=== PATIENT | female | born 1985 | race Caucasian/White ===

== ENCOUNTER 2019-09-10 06:53 | Emergency (ER) | payer BC ==
[~2019-09-10] VITALS: Ht 154.9 cm; Wt 62.0 kg
[2019-09-10] MEDS ORDERED: MICR1TAB7 PO (07:07)
[2019-09-10] MEDS ORDERED: ZYRTTAB8 PO (07:07)
[2019-09-10] MEDS ORDERED: ISOVUE-370 76% 100ML VIAL As Ordered ONE (07:43)
[2019-09-10 07:51] LABS: BASO # 0.1 10^3/uL (0.0-0.2); BASO % 1.3 % (0.0-1.0); EOS # 0.2 10^3/uL (0.0-0.5); EOS % 2.6 % (0.0-3.0); HEMOGLOBIN 12.7 g/dl (12.0-15.5); LYMPH # 4.2 10^3/uL (1.5-5.0); MEAN CORPUSCULAR HGB CONC 32.6 g/dl (32.0-36.5); MEAN CORPUSCULAR VOLUME 86.1 fl (80.0-96.0); MONO # 0.5 10^3/uL (0.0-0.8); MONO % 6.2 % (0.0-5.0); NEUTROPHILS # 3.5 10^3/uL (1.5-8.5); NEUTROPHILS % 40.7 % (36.0-66.0); PLATELET COUNT, AUTOMATED 443 10^3/uL (150-450); RED BLOOD COUNT 4.53 10^6/uL (4.00-5.40); WHITE BLOOD COUNT 8.6 10^3/uL (4.0-10.0)
[2019-09-10 08:19] LABS: ERYTHROCYTE SEDIMENTATION RATE 25 mm/hr (0-20)
[2019-09-10 08:20] LABS: MONO REFLEX EBV COMP NEGATIVE (NEGATIVE)
--- NOTE | 2019-09-10 08:29 | REPVR ---
PROCEDURE INFORMATION: Exam: CT Head Without Contrast Exam date and time: 09/10/2019 8:17 AM Age: 34 years old Clinical indication: Other: Decrased sensation right side TECHNIQUE: Imaging protocol: Computed tomography of the head without contrast. Radiation optimization: All CT scans at this facility use at least one of these dose optimization techniques: automated exposure control; mA and/or kV adjustment per patient size (includes targeted exams where dose is matched to clinical indication); or iterative reconstruction. COMPARISON: No relevant prior studies available. FINDINGS: Brain: Normal. No hemorrhage. Unremarkable white matter. No mass effect. Ventricles: Normal. No ventriculomegaly. Bones/joints: Unremarkable. No acute fracture. Sinuses: Visualized sinuses are unremarkable. No fluid levels. Mastoid air cells: Visualized mastoid air cells are well aerated. Soft tissues: Unremarkable. IMPRESSION: No CT evidence for acute intracranial abnormality. Electronically signed by: Jude Sawant On 09/10/2019 08:29:21 AM
[2019-09-10 08:30] LABS: C REACTIVE PROTEIN QUANTITATIV < 0.30 MG/DL (0.00-0.30); FREE T4 1.17 NG/DL (0.76-1.46); MAGNESIUM LEVEL 2.2 MG/DL (1.8-2.4)
--- NOTE | 2019-09-10 08:44 | REPVR ---
PROCEDURE INFORMATION: Exam: CT Neck With Contrast Exam date and time: 09/10/2019 8:17 AM Age: 34 years old Clinical indication: Throat pain and other: R anterior neck pain TECHNIQUE: Imaging protocol: Computed tomography images of the neck with intravenous contrast. Radiation optimization: All CT scans at this facility use at least one of these dose optimization techniques: automated exposure control; mA and/or kV adjustment per patient size (includes targeted exams where dose is matched to clinical indication); or iterative reconstruction. Contrast material: ISOVUE 370; Contrast volume: 75 ml; Contrast route: IV; COMPARISON: No relevant prior studies available. FINDINGS: Brain: The visualized brain parenchyma is unremarkable. Sinuses: The visualized paranasal sinuses are clear. There are no air fluid levels to suggest acute sinusitis. Nasopharynx: Unremarkable. Oropharynx: Examination reveals moderate submucosal soft tissue swelling in the oropharynx consistent with acute tonsillitis.There is moderate narrowing of the adjacent airway. There is no evidence of focal fluid collections to suggest abscess formation. Hypopharynx: Unremarkable. Larynx: Unremarkable. Normal epiglottis. Retropharyngeal space: Unremarkable. Submandibular/Parotid glands: Normal. Glands are normal in size. Thyroid: Normal. No enlarged or calcified nodules. Lymph nodes: There are multiple enlarged level I and level II lymph nodes in the neck bilaterally, most likely reactive in etiology. Trachea: Visualized trachea is unremarkable. Lungs: The visualized portions of the lung apices are normal. Vasculature: There is moderate medial and retropharyngeal ectasia of the right common carotid artery. Mastoid air cells: The visualized mastoid air cells are clear. Bones/joints: The visualized osseous structures are unremarkable. No acute fracture or dislocation is seen. IMPRESSION: 1. Examination reveals moderate submucosal soft tissue swelling in the oropharynx consistent with acute tonsillitis.There is moderate narrowing of the adjacent airway. There is no evidence of focal fluid collections to suggest abscess formation. 2. There are multiple enlarged level I and level II lymph nodes in the neck bilaterally, most likely reactive in etiology. Electronically signed by: Fadi Jaramillo On 09/10/2019 08:44:06 AM
[2019-09-10] MEDS ORDERED: dexameTHASONE 20MG/5ML VIAL (J1100 PER 1MG) IV ONE (09:00)
[2019-09-10 09:07] VITALS: BP 108/63
[2019-09-10] MEDS ORDERED: PRED20TA PO (09:10)
[2019-09-11] MEDS ORDERED: PRED20TA PO (12:13)
[2019-09-13 00:06] LABS: EBV AB TO NUCLEAR ANTIGEN >600.0 U/mL (0.0-17.9); EBV VIRAL CAPSID AG IgM 37.6 U/mL (0.0-35.9)
== END 2019-09-10 09:22 | disposition home or self-care (01) ==
LOC: M ED 06:53
DX: H92.01 Otalgia, right ear (principal); J02.9 Acute pharyngitis, unspecified; J06.9 Acute upper respiratory infection, unspecified; B34.9 Viral infection, unspecified; M54.2 Cervicalgia; R59.9 Enlarged lymph nodes, unspecified
CPT/HCPCS: 36415; 70450; 70491; 80047; 83735; 84439; 84443; 84702; 85025; 85652; 86140; 86308; 86664; 86665; 87040; 87880; 96374; 99284; J1100; Q9967

== ENCOUNTER 2019-09-11 06:54 | Observation (INO) | payer BC ==
[~2019-09-11] VITALS: Ht 154.9 cm; Wt 59.8 kg
[~2019-09-11 06:54] MED LIST: MICR1TAB7 PO; PRED20TA PO; ZYRTTAB8 PO
[2019-09-11 07:47] LABS: BASO % 0.2 % (0.0-1.0); HEMOGLOBIN 13.7 g/dl (12.0-15.5); LYMPH # 1.5 10^3/uL (1.5-5.0); MEAN CORPUSCULAR HEMOGLOBIN 27.4 pg (27.0-33.0); MEAN CORPUSCULAR HGB CONC 31.9 g/dl (32.0-36.5); MONO # 0.4 10^3/uL (0.0-0.8); MONO % 2.1 % (0.0-5.0); NEUTROPHILS # 14.6 10^3/uL (1.5-8.5); NEUTROPHILS % 88.2 % (36.0-66.0); PLATELET COUNT, AUTOMATED 522 10^3/uL (150-450); WHITE BLOOD COUNT 16.6 10^3/uL (4.0-10.0)
[2019-09-11 08:09] LABS: ERYTHROCYTE SEDIMENTATION RATE 14 mm/hr (0-20)
[2019-09-11 08:14] LABS: BLOOD UREA NITROGEN 13 MG/DL (7-18); C REACTIVE PROTEIN QUANTITATIV < 0.30 MG/DL (0.00-0.30); CALCIUM LEVEL 10.1 MG/DL (8.5-10.1); CARBON DIOXIDE LEVEL 26 MEQ/L (21-32); CHLORIDE LEVEL 104 MEQ/L (98-107); CREATININE FOR GFR 0.82 MG/DL (0.55-1.30); GLOMERULAR FILTRATION RATE > 60.0 (>60); GLUCOSE, FASTING 123 MG/DL (70-100); POTASSIUM SERUM 4.2 MEQ/L (3.5-5.1); SODIUM LEVEL 137 MEQ/L (136-145)
[2019-09-11 09:39] LABS: CPK CREATINE PHOSPHOKINASE 55 U/L (26-192); TOTAL PROTEIN 9.3 GM/DL (6.4-8.2)
[2019-09-11 10:21] LABS: VITAMIN B12 LEVEL 532 PG/ML (247-911)
--- NOTE | 2019-09-11 10:46 | REP ---
MRI brain without contrast: History: Diffuse pins and needles sensation. Rule out demyelinating disease. . Comparison study: Comparison CT study of the brain is from the previous day. Technique: Axial and sagittal imaging planes are utilized for T1 and T2-weighted scans. Sequences include spin-echo, fast spin echo, FLAIR, and diffusion weighted sequences. MRI findings: No bony calvarial lesion is seen. Craniocervical junction and upper cervical cord are normal in appearance. There is no MR evidence of significant paranasal sinus disease. No intraorbital abnormality is seen. The lateral, third, and fourth ventricles are normal in size and position. Mcmillan-white differentiation pattern is intact above and below the tentorium. There is no evidence of intracranial hemorrhage. No mass, infarction, extra-axial fluid collection or midline shift is seen. No abnormal white matter lesion is seen. Impression: Negative noncontrast brain MRI study. Electronically Signed by Min Jain MD 09/11/2019 10:38 A
--- NOTE | 2019-09-11 11:19 | REP ---
MRI CERVICAL SPINE WITHOUT CONTRAST: HISTORY: Diffuse pins and needles sensation. Rule out a MS. Comparison soft tissue neck CT study September 10, 2019. TECHNIQUE: Sagittal and axial T1- and T2-weighted scans are acquired in the usual fashion with and without fat saturation. Sequences include spin echo, turbo spin-echo, and STIR imaging sequences. MRI FINDINGS: There is straightening of the normal cervical lordosis. There are mild degenerative disc changes. There is a Schmorl's node at the superior endplate of the C7 vertebral body. The C6-7 disc is somewhat narrowed and shows decreased signal intensity on T2-weighted scans. There is central disc bulging at C6-7 effacing the ventral subarachnoid space but no cord compression is seen. There is similar degenerative disc findings at C5-6 with mild central disc bulging. No foraminal narrowing or central canal stenosis is seen. Other disc spaces are maintained in height and signal intensity. No other evidence of abnormal disc protrusion. The cervical cord is normal in coarse, caliber, and signal intensity on T1- and T2-weighted scans. No abnormal cord signal intensity is seen. Craniocervical junction is unremarkable. IMPRESSION: Mild degenerative disc changes at C5-6 and C6-7. Straightening. Schmorl's node at the superior endplate of C7. No abnormal intramedullary signal intensity or cord compressive lesion seen. Electronically Signed by Min Jain MD 09/11/2019 11:50 A
[2019-09-11] MEDS ORDERED: PRED20TA PO (12:13)
[2019-09-11] MEDS ORDERED: AZITHROMYCIN 250MG TABLET PO ONE (12:30)
[2019-09-11] MEDS ORDERED: ACETAMINOPHEN TAB 650MG DOSE (2X325MG) PO PRN (13:00)
--- NOTE | 2019-09-11 13:05 | HPEPDOC ---
General Date of Admission 09/11/19 Date of Service: Sep 11, 2019 Chief Complaint The patient is a 34-year-old female admitted with a reason for visit of Recheck. Source: Patient Exam Limitations: No limitations Timing/Duration: Day(s) History of Present Illness Patient is 34 years old female without past medical history presented to the hospital with sore throat, pins and needles sensation all over her body. Patient stated that for past week she has been having intermittent pins and needles sensation all over her body. Patient stated that she had right neck pain and difficulties with swallowing. Yesterday patient was in the emergency room, she was prescribed Decadron and azithromycin. Today patient stated that sensation of pins and needles almost resolved. Difficulties in swallowing became better. MRI of the brain was negative, MRI neck showed Mild degenerative disc changes at C5- 6 and C6-7. Straightening. Schmorl's node at the superior endplate of C7. Home Medications Scheduled Cetirizine HCl/Pseudoephedrine (Zyrtec-D Tablet) 1 Each Tab.er.12h, 1 TAB PO DAILY, (Reported) Norethindrone-E.estradiol-Iron (Microgestin Fe 1.5-30 Tab) 1 Each Tablet, 1 TAB PO DAILY, (Reported) Prednisone (Prednisone) 20 Mg Tablet, 40 MG PO QPM, (Reported) Allergies Coded Allergies: No Known Allergies (Unverified , 09/10/19) Past Medical History Medical History No medical history Family History Both parents are healthy Social History * Smoker: Denies Alcohol: Denies Drugs: denies A-FIB/CHADSVASC A-FIB History Current/History of A-Fib/PAF?: No Current PO Anticoag Therapy: No Review of Systems Constitutional: Denies: Chills, Fever Eyes: Denies: Pain, Vision change ENT: Denies: Head Aches Skin: Denies: Rash, Lesions Pulmonary: Denies: Dyspnea, Cough Cardiovascular: Denies: Chest Pain, Palpitations Gastrointestinal: Denies: Nausea, Vomiting Genitourinary: Denies: Dysuria, Frequency Hematologic: Denies: Bruising Endocrine: Denies: Polydipsia Musculoskeletal: Denies: Neck Pain Neurological: Reports: Other Symptoms (pins and needles sensation); Denies: Weakness, Incoordination, Seizures Psych: Reports: Mood Normal Physical Examination General Exam: Positive: Alert, Cooperative Eye Exam: Positive: PERRLA ENT Exam: Positive: Mucous membr. moist/pink Neck Exam: Positive: Supple; Negative: JVD Chest Exam: Positive: Clear to auscultation Heart Exam: Positive: Rate Normal Telemetry: Positive: No significant arrhythmia Abdomen Exam: Positive: Normal bowel sounds Extremity Exam: Positive: Clubbing Skin Exam: Positive: Nl turgor and temperature Neuro Exam: Positive: Normal Gait, Normal Speech, Strength at 5/5 X4 ext, Sensation Intact, Cranial Nerves 3-12 NL, Reflexes 2+ Psych Exam: Positive: Mental status NL Vital Signs Vital Signs Date Time Temp Pulse Resp B/P (MAP) Pulse Ox O2 Delivery O2 Flow Rate FiO2 09/11/19 07:27 09/11/19 06:58 97.6 78 18 98 Laboratory Data Labs 24H Laboratory Tests 2 09/11/19 07:36: Immature Granulocyte % (Auto) 0.5, Neutrophils (%) (Auto) 88.2H, Lymphocytes (%) (Auto) 9.0L, Monocytes (%) (Auto) 2.1, Eosinophils (%) (Auto) 0.0, Basophils (%) (Auto) 0.2, Neutrophils # (Auto) 14.6H, Lymphocytes # (Auto) 1.5, Monocytes # (Auto) 0.4, Eosinophils # (Auto) 0.0, Basophils # (Auto) 0.0, Nucleated Red Blood Cells % (auto) 0.0, Erythrocyte Sedimentation Rate 14, Anion Gap 7L, Glomerular Filtration Rate > 60.0, Calcium Level 10.1, Total Creatine Kinase 55, C-Reactive Protein, Quantitative < 0.30, Total Protein (PEP) 9.3H, Vitamin B12 Level 532 09/11/19 09:20: 09/11/19 09:26: Urine Color YELLOW, Urine Appearance CLEAR, Urine pH 6.0, Urine Specific [place] 1.018, Urine Protein NEGATIVE, Urine Glucose (UA) NEGATIVE, Urine Ketones NEGATIVE, Urine Blood NEGATIVE, Urine Nitrite NEGATIVE, Urine Bilirubin NEGATIV E, Urine Urobilinogen 0.2, Urine Leukocyte Esterase NEGATIVE, Urine WBC (Auto) 1, Urine RBC (Auto) 1, Urine Hyaline Casts (Auto) 0, Urine Bacteria (Auto) 1+H, Urine Squamous Epithelial Cells 0, Urine Mucus (Auto) SMALL, Urine Sperm (Auto) 09/11/19 10:31: CBC/BMP Laboratory Tests 09/11/19 07:36 Assessment/Plan Patient is 34 years old female without past medical history presented to the hospital with sore throat, pins and needles sensation all over her body. Patient stated that for past week she has been having intermittent pins and needles sensation all over her body. Patient stated that she had right neck pain and difficulties with swallowing. Yesterday patient was in the emergency room, she was prescribed Decadron and azithromycin. Today patient stated that sensation of pins and needles almost resolved. Difficulties in swallowing became better. MRI of the brain was negative, MRI neck showed Mild degenerative disc changes at C5- 6 and C6-7. Straightening. Schmorl's node at the superior endplate of C7. Problems (1) Throat pain Status: Acute Problem Text: Patient has erythematous throat with difficulty swallowing Augmentin We'll check strep throat test (2) Neck pain Status: Acute Problem Text: Most likely secondary to sore throat and degenerative changes of C6-C7 (3) Paresthesias Status: Acute Problem Text: Unclear etiology When I saw the patient her paresthesias resolved. Imaging study negative I talked to Dr. Sweeney and we discussed possibility of Guillain-Reyes syndrome. It seems very unlikely, patient doesn't have any motor deficiency, pins and needles sensations markedly improved. Dr. Sweeney recommended EMG study in the outpatient settings (4) Tonsillitis Status: Acute Problem Text: Continue Augmentin twice a day Plan / VTE VTE Prophylaxis Ordered?: Yes KILEY MEJIA DO Sep 11, 2019 13:05
[2019-09-11 14:15] VITALS: BP 109/68
[2019-09-11] MEDS: AUGMENTIN 875 MG TAB PO SCH ×2 (14:58→20:27)
[2019-09-11] MEDS: HEPARIN SOD (PORCINE) 5000UNITS/ML VIAL (J1644 PER 1000UNITS) SC SCH (20:28)
[2019-09-11 22:00] VITALS: BP 101/63
[2019-09-12 06:00] VITALS: BP 96/63
[2019-09-12 06:14] LABS: HEMOGLOBIN 12.3 g/dl (12.0-15.5); MEAN CORPUSCULAR HGB CONC 31.5 g/dl (32.0-36.5); MEAN CORPUSCULAR VOLUME 85.5 fl (80.0-96.0); PLATELET COUNT, AUTOMATED 457 10^3/uL (150-450); RED BLOOD COUNT 4.56 10^6/uL (4.00-5.40); WHITE BLOOD COUNT 13.5 10^3/uL (4.0-10.0)
[2019-09-12 06:54] LABS: ALBUMIN 3.5 GM/DL (3.2-5.2); ALT/SGPT 18 U/L (12-78); BILIRUBIN,TOTAL 0.4 MG/DL (0.2-1.0); BLOOD UREA NITROGEN 15 MG/DL (7-18); CALCIUM LEVEL 9.6 MG/DL (8.5-10.1); CARBON DIOXIDE LEVEL 27 MEQ/L (21-32); CHLORIDE LEVEL 105 MEQ/L (98-107); CREATININE FOR GFR 0.73 MG/DL (0.55-1.30); GLOMERULAR FILTRATION RATE > 60.0 (>60); GLUCOSE, FASTING 82 MG/DL (70-100); MAGNESIUM LEVEL 2.2 MG/DL (1.8-2.4); POTASSIUM SERUM 4.4 MEQ/L (3.5-5.1); SODIUM LEVEL 138 MEQ/L (136-145); TOTAL PROTEIN 7.3 GM/DL (6.4-8.2)
[2019-09-12] MEDS: HEPARIN SOD (PORCINE) 5000UNITS/ML VIAL (J1644 PER 1000UNITS) SC SCH ×2 (09:00→09:34)
[2019-09-12] MEDS: AUGMENTIN 875 MG TAB PO SCH (09:34)
[2019-09-12] MEDS ORDERED: AMOX875T2 PO (10:19)
[2019-09-12] MEDS ORDERED: PRED20TA PO (10:19)
[2019-09-12 12:43] LABS: ALBUMIN % 56.9 % (55.8-66.1)
[2019-09-12 12:44] LABS: ALBUMIN 5.29 GM/DL (3.29-5.55); ALPHA-1-GLOBULINS 0.37 GM/DL (0.17-0.41); ALPHA-2-GLOBULINS 1.23 GM/DL (0.42-0.99); ALPHA-2-GLOBULINS % 13.2 % (7.1-11.8); BETA-1-GLOBULINS 0.58 GM/DL (0.28-0.60); BETA-1-GLOBULINS % 6.2 % (4.7-7.2); BETA-2-GLOBULINS 0.44 GM/DL (0.19-0.55); BETA-2-GLOBULINS % 4.7 % (3.2-6.5)
--- NOTE | 2019-09-12 17:13 | DS.PDOC ---
Discharge Summary General Date of Admission Sep 11, 2019 at 06:55 Date of Discharge 09/12/19 Discharge Summary PROCEDURES PERFORMED DURING STAY: [None]. ADMITTING DIAGNOSES: Throat pain Neck pain Paresthesias Tonsillitis DISCHARGE DIAGNOSES: Throat pain Neck pain Paresthesias Tonsillitis COMPLICATIONS/CHIEF COMPLAINT: Paresthesias,Throat Pain. HISTORY OF PRESENT ILLNESS:Patient is 34 years old female without past medical history presented to the hospital with sore throat, pins and needles sensation all over her body. Patient stated that for past week she has been having intermittent pins and needles sensation all over her body. Patient stated that she had right neck pain and difficulties with swallowing. Yesterday patient was in the emergency room, she was prescribed Decadron and azithromycin. Today patient stated that sensation of pins and needles almost resolved. Difficulties in swallowing became better. MRI of the brain was negative, MRI neck showed Mild degenerative disc changes at C5-6 and C6-7. Straightening. Schmorl's node at the superior endplate of C7. HOSPITAL COURSE: (1) Throat pain Patient has erythematous throat with difficulty swallowing Augmentin (2) Neck pain Most likely secondary to sore throat and degenerative changes of C6-C7 (3) Paresthesias Unclear etiology When I saw the patient her paresthesias resolved. Imaging study negative I talked to Dr. Sweeney and we discussed possibility of Guillain-Reyes syndrome. It seems very unlikely, patient doesn't have any motor deficiency, pins and needles sensations markedly improved. Dr. Sweeney recommended EMG study in the outpatient settings (4) Tonsillitis Continue Augmentin twice a day DISCHARGE MEDICATIONS: Please see below. ALLERGIES: Please see below. PHYSICAL EXAMINATION ON DISCHARGE: VITAL SIGNS: Please see below. Physical Examination General Exam: Positive: Alert, Cooperative Eye Exam: Positive: PERRLA ENT Exam: Positive: Mucous membr. moist/pink Neck Exam: Positive: Supple; Negative: JVD Chest Exam: Positive: Clear to auscultation Heart Exam: Positive: Rate Normal Telemetry: Positive: No significant arrhythmia Abdomen Exam: Positive: Normal bowel sounds Extremity Exam: Positive: Clubbing Skin Exam: Positive: Nl turgor and temperature Neuro Exam: Positive: Normal Gait, Normal Speech, Strength at 5/5 X4 ext, Sensation Intact, Cranial Nerves 3-12 NL, Reflexes 2+ Psych Exam: Positive: Mental status NL LABORATORY DATA: Please see below. IMAGING:MRI brain without contrast: History: Diffuse pins and needles sensation. Rule out demyelinating disease. . Comparison study: Comparison CT study of the brain is from the previous day. Technique: Axial and sagittal imaging planes are utilized for T1 and T2- weighted scans. Sequences include spin-echo, fast spin echo, FLAIR, and diffusion weighted sequences. MRI findings: No bony calvarial lesion is seen. Craniocervical junction and upper cervical cord are normal in appearance. There is no MR evidence of significant paranasal sinus disease. No intraorbital abnormality is seen. The lateral, third, and fourth ventricles are normal in size and position. Mcmillan-white differentiation pattern is intact above and below the tentorium. There is no evidence of intracranial hemorrhage. No mass, infarction, extra-axial fluid collection or midline shift is seen. No abnormal white matter lesion is seen. Impression: Negative noncontrast brain MRI study. Electronically Signed by Min Jain MD 09/11/2019 10:38 A DD: Min Jain MD 09/11/19 1033 DT: Yanna 09/11/19 1038 DS: BRIGETTE 09/11/19 1038 PROGNOSIS: Good ACTIVITY: [As tolerated]. DIET: Regular DISCHARGE PLAN: DISPOSITION: 01 Home, Self-Care. ITEMS TO FOLLOWUP ON ON OUTPATIENT: With PCP and neurologist DISCHARGE CONDITION: [Stable]. TIME SPENT ON DISCHARGE: Greater than 20 minutes. Vital Signs/I&Os Vital Signs Date Time Temp Pulse Resp B/P (MAP) Pulse Ox O2 Delivery O2 Flow Rate FiO2 09/12/19 06:00 96.9 68 17 96/63 (74) 98 Room Air I&O- Last 24 Hours up to 6 AM 09/12/19 06:00 Intake Total 800 ml Output Total 900 ml Balance -100 ml Laboratory Data Labs 24H Laboratory Tests 2 09/12/19 05:45: Nucleated Red Blood Cells % (auto) 0.0, Anion Gap 6L, Glomerular Filtration Rate > 60.0, Calcium Level 9.6, Magnesium Level 2.2, Total Bilirubin 0.4, Aspartate Amino Transf (AST/SGOT) 18, Alanine Aminotransferase (ALT/SGPT) 18, Alkaline Phosphatase 47, Total Protein 7.3, Albumin 3.5, Albumin/Globulin Ratio 0.92L CBC/BMP Laboratory Tests 09/12/19 05:45 Microbiology Microbiology 09/11/19 Group A Streptococcus Screen ([facility]) - Final, Complete 4/29/20 Group A Streptococcus Screen ([facility]) - Final, Complete Discharge Medications Scheduled Amoxicillin/Potassium Clav (Amox-Clav 875-125 mg Tablet) 1 Each Tablet, 875 MG PO BID Cetirizine HCl/Pseudoephedrine (Zyrtec-D Tablet) 1 Each Tab.er.12h, 1 TAB PO DAILY, (Reported) Norethindrone-E.estradiol-Iron (Microgestin Fe 1.5-30 Tab) 1 Each Tablet, 1 TAB PO DAILY, (Reported) Prednisone (Prednisone) 20 Mg Tablet, 20 MG PO QPM Allergies Coded Allergies: No Known Allergies (Unverified , 09/10/19) KILEY MEJIA DO Sep 12, 2019 17:13
[2019-09-14 00:06] LABS: Lyme Disease IgG Ab 18 kDa Ban Absent (.); Lyme Disease IgG Ab 23 kDa Ban Absent (.); Lyme Disease IgG Ab 28 kDa Ban Absent (.); Lyme Disease IgG Ab 30 kDa Ban Absent (.); Lyme Disease IgG Ab 39 kDa Ban Absent (.); Lyme Disease IgG Ab 41 kDa Ban Present (.); Lyme Disease IgG Ab 45 kDa Ban Absent (.); Lyme Disease IgG Ab 58 kDa Ban Absent (.); Lyme Disease IgG Ab 66 kDa Ban Absent (.); Lyme Disease IgG Ab 93 kDa Ban Absent (.); Lyme Disease IgG West Blot Int Negative (.); Lyme Disease IgG/IgM Antibodie 1.09 ISR (0.00-0.90); Lyme Disease IgM Ab 23 kDa Ban Absent (.); Lyme Disease IgM Ab 39 kDa Ban Present (.); Lyme Disease IgM Ab 41 kDa Ban Absent (.); Lyme Disease IgM Ab Quantitati 1.02 index (0.00-0.79); Lyme Disease IgM West Blot Int Negative (.)
== END 2019-09-12 11:10 | disposition home or self-care (01) ==
LOC: M ED 06:54 → M ED INP 06:55 → ENRESERV 13:11 → M MSPAV 14:23
PROVIDERS: ADMIT Internal Medicine; ATTEND Internal Medicine
DX: J03.90 Acute tonsillitis, unspecified (principal); M54.2 Cervicalgia; R20.2 Paresthesia of skin; M50.322 Other cervical disc degeneration at C5-C6 level; M50.323 Other cervical disc degeneration at C6-C7 level; M51.44 Schmorl's nodes, thoracic region; Z79.899 Other long term (current) drug therapy; Z79.52 Long term (current) use of systemic steroids; Z79.2 Long term (current) use of antibiotics
CPT/HCPCS: 36415; 70551; 72141; 80048; 80053; 81001; 82525; 82550; 82607; 83735; 84165; 84425; 85025; 85027; 85652; 86140; 86617; 87430; 96372; 99284; J1644; U0002

== ENCOUNTER → 2019-09-18 | Outpatient (REF) | payer BC ==
[~2019-09-18] MED LIST changes: +AMOX875T2 PO
[2019-09-18 14:20] LABS: HEMOGLOBIN A1c 5.5 %
[2019-09-18 14:41] LABS: FREE T4 1.29 NG/DL (0.76-1.46)
[2019-09-18 15:20] LABS: HIV 1&2 SCREEN CENTAUR NEGATIVE (NEGATIVE)
== END ==
LOC: M SFHCPLAZ 11:52
PROVIDERS: ATTEND Family Medicine
DX: G62.9 Polyneuropathy, unspecified (principal)